=== PATIENT | male | born 1955 | race American Indian/Alaskan Native ===

== ENCOUNTER 2017-11-20 22:18 | Emergency (ER) | payer MEDICAID, OTHER ==
[2017-11-20 22:39] VITALS: RESP 18
[2017-11-20] MEDS ORDERED: Albuterol 0.083% Inhal Sol (2.5 mg/3 mL) UD INH STA (22:47)
[2017-11-20] MEDS ORDERED: Albuterol 0.083% Inhal Sol (2.5 mg/3 mL) UD ONE (22:56)
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
[2017-11-21 01:04] VITALS: BP 116/68; PULSE 73; TEMP 98.4
[2017-11-21 01:59] VITALS: O2SAT 95
== END 2017-11-21 02:01 | disposition home or self-care (01) ==
LOC: H.ER 22:18
DX: Z76.0 Encounter for issue of repeat prescription (principal); F32.9 Major depressive disorder, single episode, unspecified; J45.909 Unspecified asthma, uncomplicated